=== PATIENT | male | born 1950 | race Caucasian/White ===

== ENCOUNTER 2017-11-15 10:29 | Day surgery (SDC) | payer MEDICARE ==
[~2017-11-15 10:29] MED LIST: Metoclopramide 10 MG/2 ML SDV IV PRN; Sodium Chloride 0.9% 1,000 ML IV SCH; Sodium Chloride 0.9% 10 ML Syringe FLUSH PRN
[2017-11-15] MEDS ORDERED: Propofol 1,000 MG/100 ML SDV ONE (13:50)
--- NOTE | 2017-11-15 20:35 | OR ---
DATE OF OPERATION: 11/15/2017 PREOPERATIVE DIAGNOSIS: Screening colonoscopy. POSTOPERATIVE DIAGNOSIS: Screening colonoscopy. PROCEDURE: Colonoscopy. ANESTHESIA: MAC. ESTIMATED BLOOD LOSS: None. COMPLICATIONS: None. INDICATION FOR THE PROCEDURE: The patient is a 67-year-old male who is here today for screening colonoscopy. Last colonoscopy was approximately 10 years ago, was normal per the patient. The patient denies any change in bowel habits since that time. DESCRIPTION OF PROCEDURE: Informed consent was obtained from the patient. The patient was taken to the operating room, placed on the table in left lateral decubitus position. Monitored anesthesia care was administered. Digital rectal exam was normal. Colonoscope was advanced through the anus directed toward the cecum. Cecum was identified by appendiceal orifice and ileocecal valve. Colonoscope was then slowly withdrawn. No masses, no polyps, no areas of inflammation or ischemia, no AV malformations, no diverticula were noted. Retroflexion performed in the rectum was also unremarkable. Colonoscope was then withdrawn. The patient tolerated the procedure well and was brought to recovery room in good condition. FINDINGS: Normal colonoscopy. RECOMMENDATIONS: We would recommend repeat screening colonoscopy in 10 years. LAVELLE /[id number]
== END 2017-11-15 15:30 | disposition home or self-care (01) ==
LOC: LB.SDS 10:29
PROVIDERS: ATTEND Surgery
DX: Z12.11 Encounter for screening for malignant neoplasm of colon (principal); I10 Essential (primary) hypertension; F17.220 Nicotine dependence, chewing tobacco, uncomplicated; Z79.82 Long term (current) use of aspirin; Z79.899 Other long term (current) drug therapy
CPT/HCPCS: J3490; J7030